=== PATIENT | female | born 1970 | race African-American/Black ===

== ENCOUNTER → 2016-07-11 | Outpatient (CLI) | payer OTHER ==
[~2016-07-11] MED LIST: ASPIRIN325 MG PO; CLEOCIN HCL300 MG PO; IBUPROFEN800 MG PO; KEPPRA750 MG PO; KLONOPIN TAB 00.5 MG PO; PERCOCET 10-321 EACH PO; TORADOL 10 MG T10 MG PO; ZOFRAN4 MG PO; ZOLOFT100 MG PO
[2016-07-11 14:37] LABS: HEMOGLOBIN 12.9 gm/dl (12.3-15.3); RED BLOOD COUNT 4.25 M/UL (4.00-5.10); WHITE BLOOD COUNT 6.3 K/UL (4.5-11.0)
[2016-07-11 15:05] LABS: BUN/CREATININE RATIO 16 (0-10)
== END ==
LOC: LAB 13:33
PROVIDERS: Emergency Medicine
DX: G40.89 Other seizures (principal); M13.871 Other specified arthritis, right ankle and foot; F41.1 Generalized anxiety disorder
CPT/HCPCS: 36415; 80053; 85027

== ENCOUNTER 2016-07-12 10:58 | Day surgery (SDC) | payer OTHER ==
[~2016-07-12] VITALS: Ht 149.9 cm; Wt 87.1 kg
[2016-07-12 11:40] LABS: HEMOGLOBIN 13.6 gm/dl (12.3-15.3); RED BLOOD COUNT 4.46 M/UL (4.00-5.10); WHITE BLOOD COUNT 6.3 K/UL (4.5-11.0)
[2016-07-12 11:54] LABS: BUN/CREATININE RATIO 17 (0-10)
[2016-07-12] MEDS ORDERED: KLONOPIN TAB 00.5 MG PO (12:25)
[2016-07-12] MEDS ORDERED: KEPPRA750 MG PO (12:25)
[2016-07-12] MEDS ORDERED: ZOLOFT100 MG PO (12:26)
--- NOTE | 2016-07-13 05:23 | NUR ---
care assumed from earl march rn
--- NOTE | 2016-07-13 05:28 | NUR ---
care assumed from earl march rn @ [id number].
[2016-07-13] MEDS ORDERED: TORADOL 10 MG T10 MG PO (19:41)
[2016-07-13] MEDS ORDERED: IBUPROFEN800 MG PO (19:41)
[2016-07-13] MEDS ORDERED: PERCOCET 10-321 EACH PO (19:43)
[2016-07-13] MEDS ORDERED: CLEOCIN HCL300 MG PO (19:43)
[2016-07-13] MEDS ORDERED: ZOFRAN4 MG PO (19:43)
[2016-07-13] MEDS ORDERED: ASPIRIN325 MG PO (19:44)
== END 2016-07-13 20:59 | disposition home or self-care (01) ==
LOC: OR 10:58 → M/S 18:04 → OR 07-13 20:59
PROVIDERS: Podiatrist Foot & Ankle Surgery
PROC: 0SBF4ZZ Excision of Right Ankle Joint, Percutaneous Endoscopic Approach (ICD-10-PCS; principal; 2016-07-12 07:45)
PROC: 0SBF0ZZ Excision of Right Ankle Joint, Open Approach (ICD-10-PCS; 2016-07-12 07:45)
DX: L92.9 Granulomatous disorder of the skin and subcutaneous tissue, unspecified (principal); S93.491A Sprain of other ligament of right ankle, initial encounter; M21.6X1 Other acquired deformities of right foot; M65.861 Other synovitis and tenosynovitis, right lower leg; G89.29 Other chronic pain; M19.90 Unspecified osteoarthritis, unspecified site; F41.9 Anxiety disorder, unspecified; Z82.49 Family history of ischemic heart disease and other diseases of the circulatory system; Z83.3 Family history of diabetes mellitus; Z88.1 Allergy status to other antibiotic agents; Z88.8 Allergy status to other drugs, medicaments and biological substances; Z79.899 Other long term (current) drug therapy; Z91.040 Latex allergy status; W18.42XA Slipping, tripping and stumbling without falling due to stepping into hole or opening, initial encounter
CPT/HCPCS: 11403; 36415; 80048; 85027; J0690; J1885; J2250; J2795; J3010; J3370; J7120; Q4133

== ENCOUNTER 2016-07-15 10:53 | Emergency (ER) | payer OTHER ==
[2016-07-15 14:48] LABS: HEMOGLOBIN 12.5 gm/dl (12.3-15.3); RED BLOOD COUNT 4.09 M/UL (4.00-5.10); WHITE BLOOD COUNT 7.8 K/UL (4.5-11.0)
[2016-07-15 15:02] LABS: BUN/CREATININE RATIO 11 (0-10)
== END 2016-07-15 20:26 | disposition home or self-care (01) ==
LOC: ER1 10:53
PROVIDERS: Physician Assistant
DX: G89.18 Other acute postprocedural pain (principal); M25.571 Pain in right ankle and joints of right foot; Z90.49 Acquired absence of other specified parts of digestive tract; Z88.1 Allergy status to other antibiotic agents; Z88.6 Allergy status to analgesic agent; Z88.5 Allergy status to narcotic agent; Z91.040 Latex allergy status
CPT/HCPCS: 36415; 80053; 85025; 96361; 96374; 96375; 99283; J2270; J2405

== ENCOUNTER 2016-08-04 07:50 | Emergency (ER) | payer OTHER | END 2016-08-04 08:38 | disposition home or self-care (01) | LOC: ER1 07:50 | DX: S82.891A Other fracture of right lower leg, initial encounter for closed fracture (principal); X58.XXXA Exposure to other specified factors, initial encounter | CPT/HCPCS: 99283 ==